=== PATIENT | female | born 1955 | race Caucasian/White ===

== ENCOUNTER → 2020-05-22 | Outpatient (CLI) | payer OTHER | LOC: HYPER 06:23 | PROVIDERS: ATTEND Emergency Medicine | DX: R21 Rash and other nonspecific skin eruption (principal); I25.709 Atherosclerosis of coronary artery bypass graft(s), unspecified, with unspecified angina pectoris; E78.5 Hyperlipidemia, unspecified; G47.00 Insomnia, unspecified; I10 Essential (primary) hypertension; K21.9 Gastro-esophageal reflux disease without esophagitis; F03.90 Unspecified dementia, unspecified severity, without behavioral disturbance, psychotic disturbance, mood disturbance, and anxiety; F32.9 Major depressive disorder, single episode, unspecified; F41.9 Anxiety disorder, unspecified; F43.23 Adjustment disorder with mixed anxiety and depressed mood; Z87.891 Personal history of nicotine dependence; Z95.1 Presence of aortocoronary bypass graft; Z79.01 Long term (current) use of anticoagulants; Z79.82 Long term (current) use of aspirin ==

== ENCOUNTER → 2020-05-24 | Outpatient (CLI) | payer OTHER | LOC: SJCVCIMAG 08:45 | PROVIDERS: ATTEND Emergency Medicine | DX: I70.202 Unspecified atherosclerosis of native arteries of extremities, left leg (principal); L97.818 Non-pressure chronic ulcer of other part of right lower leg with other specified severity ==

== ENCOUNTER → 2020-06-12 | Outpatient (CLI) | payer OTHER | LOC: HYPER 10:13 | PROVIDERS: ATTEND Emergency Medicine | DX: L40.3 Pustulosis palmaris et plantaris (principal); R21 Rash and other nonspecific skin eruption; I25.709 Atherosclerosis of coronary artery bypass graft(s), unspecified, with unspecified angina pectoris; K21.9 Gastro-esophageal reflux disease without esophagitis; G47.00 Insomnia, unspecified; I10 Essential (primary) hypertension; E78.5 Hyperlipidemia, unspecified; F03.90 Unspecified dementia, unspecified severity, without behavioral disturbance, psychotic disturbance, mood disturbance, and anxiety; F43.23 Adjustment disorder with mixed anxiety and depressed mood; F41.9 Anxiety disorder, unspecified; F32.9 Major depressive disorder, single episode, unspecified; Z87.891 Personal history of nicotine dependence; Z95.1 Presence of aortocoronary bypass graft; Z79.01 Long term (current) use of anticoagulants; Z79.82 Long term (current) use of aspirin ==

== ENCOUNTER → 2020-06-21 | Outpatient (CLI) | payer OTHER | LOC: HYPER 09:38 | PROVIDERS: ATTEND Emergency Medicine | DX: R21 Rash and other nonspecific skin eruption (principal); L40.3 Pustulosis palmaris et plantaris; I25.709 Atherosclerosis of coronary artery bypass graft(s), unspecified, with unspecified angina pectoris; I25.10 Atherosclerotic heart disease of native coronary artery without angina pectoris; I10 Essential (primary) hypertension; E78.5 Hyperlipidemia, unspecified; K21.9 Gastro-esophageal reflux disease without esophagitis; F32.9 Major depressive disorder, single episode, unspecified; F03.90 Unspecified dementia, unspecified severity, without behavioral disturbance, psychotic disturbance, mood disturbance, and anxiety; F41.9 Anxiety disorder, unspecified; F43.23 Adjustment disorder with mixed anxiety and depressed mood; Z79.01 Long term (current) use of anticoagulants; Z79.82 Long term (current) use of aspirin; Z87.891 Personal history of nicotine dependence; Z95.1 Presence of aortocoronary bypass graft ==

== ENCOUNTER → 2020-07-10 | Outpatient (CLI) | payer OTHER | LOC: HYPER 09:23 | PROVIDERS: ATTEND Emergency Medicine | DX: L40.3 Pustulosis palmaris et plantaris (principal); R21 Rash and other nonspecific skin eruption; I25.709 Atherosclerosis of coronary artery bypass graft(s), unspecified, with unspecified angina pectoris; K21.9 Gastro-esophageal reflux disease without esophagitis; E78.5 Hyperlipidemia, unspecified; I10 Essential (primary) hypertension; G47.00 Insomnia, unspecified; F43.23 Adjustment disorder with mixed anxiety and depressed mood; F03.90 Unspecified dementia, unspecified severity, without behavioral disturbance, psychotic disturbance, mood disturbance, and anxiety; Z87.891 Personal history of nicotine dependence; Z79.01 Long term (current) use of anticoagulants; Z79.82 Long term (current) use of aspirin; Z95.1 Presence of aortocoronary bypass graft ==

== ENCOUNTER → 2020-08-07 | Outpatient (CLI) | payer OTHER | LOC: HYPER 09:30 | PROVIDERS: ATTEND Specialist | DX: R21 Rash and other nonspecific skin eruption (principal); L40.3 Pustulosis palmaris et plantaris; E78.5 Hyperlipidemia, unspecified; I25.709 Atherosclerosis of coronary artery bypass graft(s), unspecified, with unspecified angina pectoris; I10 Essential (primary) hypertension; K21.9 Gastro-esophageal reflux disease without esophagitis; F03.90 Unspecified dementia, unspecified severity, without behavioral disturbance, psychotic disturbance, mood disturbance, and anxiety; F32.9 Major depressive disorder, single episode, unspecified; F43.23 Adjustment disorder with mixed anxiety and depressed mood; Z87.891 Personal history of nicotine dependence; Z95.1 Presence of aortocoronary bypass graft; Z79.01 Long term (current) use of anticoagulants; Z79.82 Long term (current) use of aspirin ==

== ENCOUNTER → 2020-08-17 | Outpatient (CLI) | payer OTHER | LOC: SJCVC 10:48 | PROVIDERS: ATTEND Internal Medicine | DX: R94.31 Abnormal electrocardiogram [ECG] [EKG] (principal); I45.10 Unspecified right bundle-branch block; I25.10 Atherosclerotic heart disease of native coronary artery without angina pectoris; I25.5 Ischemic cardiomyopathy; E78.00 Pure hypercholesterolemia, unspecified; I10 Essential (primary) hypertension; F17.201 Nicotine dependence, unspecified, in remission; Z95.1 Presence of aortocoronary bypass graft; Z79.899 Other long term (current) drug therapy ==

== ENCOUNTER → 2020-08-21 | Outpatient (CLI) | payer OTHER | LOC: HYPER 09:33 | PROVIDERS: ATTEND Specialist | DX: L40.3 Pustulosis palmaris et plantaris (principal); R21 Rash and other nonspecific skin eruption; I25.709 Atherosclerosis of coronary artery bypass graft(s), unspecified, with unspecified angina pectoris; K21.9 Gastro-esophageal reflux disease without esophagitis; G47.00 Insomnia, unspecified; I10 Essential (primary) hypertension; E78.5 Hyperlipidemia, unspecified; F43.23 Adjustment disorder with mixed anxiety and depressed mood; F03.90 Unspecified dementia, unspecified severity, without behavioral disturbance, psychotic disturbance, mood disturbance, and anxiety; Z79.01 Long term (current) use of anticoagulants; Z79.82 Long term (current) use of aspirin; Z95.1 Presence of aortocoronary bypass graft; Z87.891 Personal history of nicotine dependence ==

== ENCOUNTER → 2020-08-29 | Outpatient (CLI) | payer OTHER | LOC: CAT 10:41 | PROVIDERS: ATTEND Internal Medicine | DX: R91.8 Other nonspecific abnormal finding of lung field (principal); I25.10 Atherosclerotic heart disease of native coronary artery without angina pectoris; Z87.891 Personal history of nicotine dependence ==

== ENCOUNTER → 2020-09-07 | Outpatient (CLI) | payer OTHER ==
[~2020-09-07] MED LIST: IMDUR 30 MG TAB30 M1 PO
== END ==
LOC: SJCVCIMAG 07:51
PROVIDERS: ATTEND Internal Medicine
DX: I65.21 Occlusion and stenosis of right carotid artery (principal); I34.0 Nonrheumatic mitral (valve) insufficiency; I25.10 Atherosclerotic heart disease of native coronary artery without angina pectoris; I25.5 Ischemic cardiomyopathy; E78.5 Hyperlipidemia, unspecified; I70.0 Atherosclerosis of aorta; I70.8 Atherosclerosis of other arteries; Z95.1 Presence of aortocoronary bypass graft; Z79.899 Other long term (current) drug therapy; Z87.891 Personal history of nicotine dependence; Z82.49 Family history of ischemic heart disease and other diseases of the circulatory system

== ENCOUNTER 2020-09-14 15:05 | Emergency (ER) | payer OTHER ==
[~2020-09-14] VITALS: Ht 160 cm; Wt 79.4 kg
--- NOTE | ~2020-09-14 | EMS ---
[address] [address] EMS Patient Care Report Name: ERIKA SAHU Room #: DEP Haresh#: [id number] Admission: 09/14/20 Attend Phys: Discharge: 09/14/20 Date of : 55 Report #: [id number] THIS REPORT FOR: //name// Report Transmitted: 09/14/2020 17:53 EMS Care Summary [place], [place]/[facility] Incident [id number] @ 09/14/2020 14:35 Incident Location [address] [place] [address] BREAK Patient ERIKA SAHU Female, 64 Years 1955 Patient Address [address] [place] [address] Patient History Gastro-Esophageal Reflux Disease (GERD),Cardiac - Stent,Depression,Anxiety,Coronary Artery Disease (CAD), Patient Allergies No known allergies, Patient Medications Plavix, Metoprolol, Chief Complaint CP Disposition Transported No Lights/[place] Dispatch Reason Chest Pain (Non-Traumatic) Transported To [facility] Narrative RESPONDED TO CHEST PAIN AT [facility]. UPON ARRIVAL PT FOUND SITTING UPRIGHT IN CHAIR ALERT AND ORIENTED. PT REPORTS HAVING CHEST PAIN FOR 1 WEEK AND SAYS IN THE LAST HOUR IT HAS WORSENED. PT HAS HX OF CARDIAC STENT AND HEART [address] [address] EMS Patient Care Report Name: ERIKA SAHU [id number] Admission: 09/14/20 Attend Phys: Discharge: 09/14/20 Date of : 55 Report #: [id number] ATTACK. SHE STATES THE SYMPTOMS HAVE ALWAYS BEEN DIFFERENT SO SHE WORRIED SHE MAY HAVE ANOTHER. PT REPORTS TIGHTNESS IN CHEST SUBSTERNALLY. PT DENIES PAIN RADIATING ELSEWHERE. PT PIVOTS TO COT WHERE VITALS, 3 LEAD AND 12 LEAD OBTAINED. IV NOT ATTEMPTED DUE TO MINIMAL ACCESS. 12 LEAD REVEALED RBBB WITH ISCHEMIA NOTED IN LEADS V1-V3. PT TRANSPORTED TO [facility] WITH NO CHANGE IN CONDITION. PT SCOOTED TO BED AND HANDRAILS UP. REPORT GIVEN TO NURSE. Initial Vitals @14:49P: 80,CO: 2,SpO2: 99, @14:46P: 82,R: 16,BP: 146/88,CO: 2,SpO2: 97, @14:50P: 80,R: 18,BP: 146/86,Pain: 6/10,GCS: 15,CO: 1,SpO2: 98,Revised Trauma: 12, @14:55P: 80,BP: 142/84,CO: 1,SpO2: 98, @14:52P: 79,CO: 1,SpO2: 98,TN Suspected: false Assessments @14:43MENTAL:Time Oriented,Person Oriented,Place Oriented,Event Oriented,SKIN:HEENT:Head/Face: No Abnormalities,Eyes: No Abnormalities,Neck/Airway: No Abnormalities,LUNG SOUNDS:General: No Abnormalities,Left Upper: No Abnormalities,Right Upper: No Abnormalities,Left Lower: No Abnormalities,Right Lower: No Abnormalities,ABDOMEN:General: No Abnormalities,Left Upper: No Abnormalities,Right Upper: No Abnormalities,Left Lower: No Abnormalities,Right Lower: No Abnormalities,PELVIS//GI:No Abnormalities,EXTREMITIES:Left Arm: No Abnormalities,Right Arm: No Abnormalities,Left Leg: No Abnormalities,Right Leg: No Abnormalities,PULSE:NEURO:No Abnormalities,@14:53MENTAL:Place Oriented,Person Oriented,Event Oriented,Time Oriented,SKIN:No Abnormalities,HEENT:Head/Face: No Abnormalities,Eyes: No Abnormalities,Neck/Airway: No Abnormalities,LUNG SOUNDS:General: No Abnormalities,Left Upper: No Abnormalities,Right Upper: No Abnormalities,Left Lower: No Abnormalities,Right Lower: No Abnormalities,ABDOMEN:General: No Abnormalities,Left Upper: No Abnormalities,Right Upper: No Abnormalities,Left Lower: No Abnormalities,Right Lower: No Abnormalities,PELVIS//GI:No Abnormalities,EXTREMITIES:Left Arm: No Abnormalities,Right Arm: No Abnormalities,Left Leg: No Abnormalities,Right Leg: No Abnormalities,PULSE:NEURO:No Abnormalities, Impression Chest Pain / Discomfort Procedures @14:43ALS AssessmentResponse: UnchangedSucceeded@14:463-Lead ECGResponse: UnchangedSucceeded@14:4912-Lead ECGResponse: UnchangedFailed@14:5212-Lead ECGResponse: UnchangedSucceeded Timeline 14:34,Call Received [address] [address] EMS Patient Care Report Name: ERIKA SAHU Room #: [facility] RONAK Hutson#: [id number] Admission: 09/14/20 Attend Phys: Discharge: 09/14/20 Date of : 55 Report #: [id number] 14:34,Dispatch Notified 14:35,Dispatched 14:36,En Route 14:41,On Scene 14:43,At Patient 14:43,ALS Assessment,Response: UnchangedSucceeded, 14:46,BP: 146/88 M,PULSE: 82,RR: 16 R,SPO2: 97 Ox,ETCO2: ,BG: ,PAIN: ,GCS: , 14:46,3-Lead ECG,Response: UnchangedSucceeded, 14:49,12-Lead ECG,Response: UnchangedFailed, 14:49,BP: / M,PULSE: 80,RR: R,SPO2: 99 Ox,ETCO2: ,BG: ,PAIN: ,GCS: , 14:50,BP: 146/86 M,PULSE: 80,RR: 18 R,SPO2: 98 Ox,ETCO2: ,BG: ,PAIN: 6,GCS: 15, 14:52,12-Lead ECG,Response: UnchangedSucceeded, 14:52,BP: / M,PULSE: 79,RR: R,SPO2: 98 Ox,ETCO2: ,BG: ,PAIN: ,GCS: , 14:53,Depart Scene 14:55,BP: 142/84 M,PULSE: 80,RR: R,SPO2: 98 Ox,ETCO2: ,BG: ,PAIN: ,GCS: , 15:10,At Destination 15:16,Call Closed Disclaimer v1.1 Copyright 2020 [employer] This EMS Care Summary contains data elements from the applicable legal record (which may be displayed differently). It is designed to provide pertinent information for the following purposes: continuity of care, clinical quality, and state data reporting. The complete legal record is available to ED staff and administrators of the receiving hospital in [email or web address]'s Patient Tracker. All data is provided "as is."
--- NOTE | ~2020-09-14 | EKG ---
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: [facility] : 1955 Requested By: Emma Vee Order Number: [id number] MD: Measurements Intervals [place] Rate: 79 P: 48 WI: 198 QRS: 82 QRSD: 154 T: 52 QT: 455 QTc: 522 Interpretive Statements Sinus rhythm Right bundle branch block Probable lateral infarct, age indeterminate Compared to ECG 02/23/2004 20:21:23 Right bundle-branch block now present Myocardial infarct finding now present T-wave abnormality no longer present Possible ischemia no longer present [email or web address] By: 1507 1507 Epiphany Epiphany, /TAVO
[2020-09-14 15:44] LABS: ABSOLUTE NEUTROPHILS 7.4 thou/uL (1.4-8.2); BASOPHILS 0.9 % (0.0-2.0); HEMATOCRIT 38.8 % (37.0-47.0); HEMOGLOBIN 13.2 gm/dL (12.0-15.0); LYMPHOCYTES 18.8 % (24.0-44.0); MCH 33.4 pg (26.0-34.0); MCHC 34.1 g/dL (28.0-37.0); MONOCYTES 10.2 % (1.0-8.0); PLATELET COUNT 220 thou/uL (150-400); POLYS 69.1 % (36.0-66.0); RBC 3.96 mil/uL (4.20-5.00); RDW 14.2 % (10.5-14.5); WBC 10.7 thou/uL (4.0-11.0)
[2020-09-14 15:48] LABS: ANION GAP 11 mmol/L (7-16); BUN 10 mg/dL (7-18); CHLORIDE 100 mmol/L (98-107); CO2 25 mmol/L (21-32); CREATININE 1.4 mg/dL (0.6-1.0); GLUCOSE 114 mg/dL (74-106); SODIUM 136 mmol/L (136-145)
[2020-09-14 15:58] LABS: ALBUMIN 3.6 g/dL (3.4-5.0); DIRECT BILIRUBIN 0.1 mg/dL (<0.1-0.2); SGOT 13 U/L (15-37); SGPT 21 U/L (30-65); TOTAL BILIRUBIN 0.4 mg/dL (0.2-1.0); TOTAL PROTEIN 7.5 g/dL (6.4-8.2); TROPONIN-I <0.06 ng/mL (<0.06)
[2020-09-14] MEDS ORDERED: IMDUR 30 MG TAB30 M1 PO (17:49)
[2020-09-14 18:28] VITALS: BP 110/63
== END 2020-09-14 18:30 | disposition home or self-care (01) ==
LOC: ER 15:05
PROVIDERS: Emergency Medicine
DX: I20.8 Other forms of angina pectoris (principal); I25.2 Old myocardial infarction; Z95.5 Presence of coronary angioplasty implant and graft; Z90.49 Acquired absence of other specified parts of digestive tract; Z87.891 Personal history of nicotine dependence

== ENCOUNTER → 2020-09-20 | Outpatient (CLI) | payer OTHER | LOC: SJCVC 14:49 | PROVIDERS: ATTEND Internal Medicine | DX: R94.31 Abnormal electrocardiogram [ECG] [EKG] (principal); I45.4 Nonspecific intraventricular block; I11.9 Hypertensive heart disease without heart failure; I25.10 Atherosclerotic heart disease of native coronary artery without angina pectoris; I25.5 Ischemic cardiomyopathy; E78.5 Hyperlipidemia, unspecified; R91.8 Other nonspecific abnormal finding of lung field; I25.2 Old myocardial infarction; F17.201 Nicotine dependence, unspecified, in remission; Z95.1 Presence of aortocoronary bypass graft; Z79.899 Other long term (current) drug therapy ==

== ENCOUNTER → 2020-10-10 | Outpatient (CLI) | payer OTHER ==
[~2020-10-10] MED LIST changes: +ACETAMINOPHEN500 MG PO; +ARIPIPRAZOLE2 MG PO; +ASA81BEC PO; +ATORVASTATIN CA20 MG PO; +BUSPIRONE HCL5 MG PO; +CARAFATE 1 GM TA1 G1 PO; +CLARITIN10 M3 PO; +CLOBETASOL PROP15 G1 TOP; +CLOPIDOGREL75 MG PO; +GAVILAX17 GM PO; +ISOSORBIDE MONO60 M1 PO; +METOPROLOL SUCC25 M1 PO; +NITROSTAT0.4 MG SUBLING; +ONDANSETRON HCL4 M2 PO; +OTEZLA30 MG PO; +PROAIR HFA8.5 GM INH; +PROTONIX40 M2 PO; +RANOLAZINE ER500 MG PO; +SPIRONOLACTONE25 MG PO; +UREVAZ60 GM TOP; +VITAMIN B-12500 MC5 PO; +VITAMIN C500 M2 PO; +ZINC SULFATE220 MG PO
== END ==
LOC: LAB 14:40
PROVIDERS: ATTEND Surgery Vascular Surgery
DX: Z01.812 Encounter for preprocedural laboratory examination (principal); Z20.828 Contact with and (suspected) exposure to other viral communicable diseases

== ENCOUNTER 2020-10-16 06:06 | Inpatient (IN) | payer OTHER ==
[2020-10-10 11:34] LABS: ABSOLUTE NEUTROPHILS 6.7 thou/uL (1.4-8.2); BASOPHILS 0.5 % (0.0-2.0); EOSINOPHILS 0.6 % (0.0-3.0); HEMATOCRIT 39.3 % (37.0-47.0); HEMOGLOBIN 13.4 gm/dL (12.0-15.0); LYMPHOCYTES 18.8 % (24.0-44.0); MCH 33.2 pg (26.0-34.0); MCHC 34.2 g/dL (28.0-37.0); MCV 97.1 fL (80.0-100.0); MONOCYTES 8.9 % (1.0-8.0); PLATELET COUNT 222 thou/uL (150-400); POLYS 71.2 % (36.0-66.0); RBC 4.05 mil/uL (4.20-5.00); RDW 14.2 % (10.5-14.5); URINE BILIRUBIN NEGATIVE (Negative); URINE BLOOD NEGATIVE (Negative); URINE CLARITY SL CLOUDY; URINE COLOR YELLOW; URINE GLUCOSE-RANDOM* NEGATIVE (Negative); URINE KETONES NEGATIVE (Negative); URINE NITRITE-REFLEX NEGATIVE (Negative); URINE PROTEIN (DIPSTICK) NEGATIVE (Negative); URINE SPECIFIC GRAVITY 1.025 (1.005-1.035); URINE UROBILINOGEN 0.2 E.U./dl (0.2-1.0); WBC 9.4 thou/uL (4.0-11.0)
[2020-10-10 11:35] LABS: URINE LEUKOCYTES-REFLEX 2+ (Negative)
[2020-10-10 11:51] LABS: APTT 28.7 Seconds (24.5-32.8); PROTIME 10.7 Seconds (9.3-11.4)
[2020-10-10 11:57] LABS: SQUAMOUS 0-3 Few /LPF (0-3)
[2020-10-10 11:58] LABS: ALBUMIN 3.8 g/dL (3.4-5.0); CALCIUM 9.2 mg/dL (8.5-10.1); CASTS None Seen /LPF (None Seen); CREATININE 1.3 mg/dL (0.6-1.0); CRYSTALS None Seen /LPF (None Seen); POTASSIUM 4.2 mmol/L (3.5-5.1); TOTAL BILIRUBIN 0.6 mg/dL (0.2-1.0); TOTAL PROTEIN 7.4 g/dL (6.4-8.2)
[2020-10-10 12:00] LABS: URINE RBC None Seen /HPF (0-2); URINE WBC-REFLEX 0-5 Rare /HPF (0-5)
[2020-10-16] VITALS (9 sets, daily range): BP systolic 81–109; BP diastolic 47–69
[~2020-10-16] VITALS: Ht 160 cm; Wt 85.0 kg
[2020-10-17] VITALS (8 sets, daily range): BP systolic 82–114; BP diastolic 47–62
[2020-10-17 05:39] LABS: HEMATOCRIT 31.4 % (37.0-47.0); HEMOGLOBIN 10.4 gm/dL (12.0-15.0); MCH 32.6 pg (26.0-34.0); MCHC 33.2 g/dL (28.0-37.0); MCV 98.1 fL (80.0-100.0); RBC 3.2 mil/uL (4.20-5.00); RDW 14.5 % (10.5-14.5); WBC 16.5 thou/uL (4.0-11.0)
[2020-10-17 06:01] LABS: CALCIUM 7.9 mg/dL (8.5-10.1); CREATININE 1.1 mg/dL (0.6-1.0); POTASSIUM 4.5 mmol/L (3.5-5.1)
[2020-10-18] VITALS (17 sets, daily range): BP systolic 86–120; BP diastolic 48–69
[2020-10-19] VITALS (19 sets, daily range): BP systolic 95–113; BP diastolic 52–77
--- NOTE | 2020-10-19 11:05 | O ---
[facility] [place] [address] OPERATIVE REPORT Name: ERIKA SAHU Room #: 249-P ADM IN M.R.#: [id number] Admission: 10/16/20 Attend Phys: Fercho Gutierres MD Discharge: Date of : 55 Report #: [id number] THIS REPORT FOR: cc: Adi Laazr MD, Mark A. MD Forman, John M. MD ~ CC: Fercho Lazar DATE OF SERVICE: 10/16/2020 PREOPERATIVE DIAGNOSIS: Left lower lobe pulmonary nodule. POSTOPERATIVE DIAGNOSES: Left lower lobe pulmonary nodule. Frozen section revealed squamous cell carcinoma. OPERATIONS: Bronchoscopy, left thoracotomy with lower pulmonary lobectomy. SURGEON: Fercho Gutierres MD LODE MINER: TOSHA Cooper. ANESTHESIA: General. INDICATIONS: The patient is a 65-year-old who had a CT scan that showed a solitary pulmonary nodule. This led up on PET scan, but no other areas were positive. The patient had reasonable pulmonary function for resection as well as a reasonable performance status. FINDINGS AND TECHNIQUE: After general anesthesia was established, flexible diagnostic bronchoscopy was performed. No endobronchial lesions were noted. A double lumen endotracheal tube was placed and its position was checked under bronchoscopic guidance. The patient was placed with left side up. Exposure was obtained through a posterolateral thoracotomy. Chest was entered using a rib sparing, nerve sparing approach through the fifth interspace. The nodule in the lower lobe was identified. A wedge resection was done and this was submitted for frozen section. Frozen section was suspicious for squamous cell carcinoma. The lobectomy was performed. A well-established fissure was exploited to expose the interlobar pulmonary artery. Pulmonary arterial branches to the lower lobe were ligated and divided. The inferior pulmonary vein was circumdissected and [facility] [address] [place] [address] OPERATIVE REPORT Name: ERIKA SAHU Room #: 249-P ADM IN M.R.#: [id number] Admission: 10/16/20 Attend Phys: Fercho Gutierres MD Discharge: Date of : 55 Report #: [id number] stapled and divided. The bronchus was circumdissected tested and then stapled and divided. The lobe was submitted for permanent pathology. Node dissection was done and nodes from the pulmonary ligament, hilum, and subcarinal areas were submitted. Hemostasis was ascertained in all areas. Bronchial stump was tested and found to be secured. A chest tube was brought through separate stab wound and then chest was closed to continue the nerve sparing, rib sparing approach. The patient tolerated the procedure well and was taken to the recovery area in good condition. All counts reported as correct. <ELECTRONICALLY SIGNED> By: Fercho Gutierres MD 10/19/20 1105 1019 1028 Fercho Gutierres MD /nt
[2020-10-20] VITALS (9 sets, daily range): BP systolic 93–111; BP diastolic 43–70
[2020-10-21] VITALS (8 sets, daily range): BP systolic 92–99; BP diastolic 51–63
[2020-10-22 05:46] VITALS: BP 95/56
[2020-10-22 08:15] VITALS: BP 99/64
--- NOTE | 2020-10-22 09:06 | PATH ---
[facility] [place] [address] PATHOLOGY RPT PROCEDURE Name: ERIKA TEJADA Room #: 207-P ADM IN M.R.#: [id number] Admission: 10/16/20 Date of : 55 Discharge: Report #: [id number] Path Case #: [id number] [facility] Accession Number: [id number] . 01 Material submitted: . PART A: lung - LEFT LOWER LOBE WEDGE BIOPSY FS. Modifiers: left, lower PART B: lymph node - PULMONARY LIGAMENT LYMPH NODE LEVEL 9 PART C: lymph node - LEVEL 10 LYMPH NODE HILAR PART D: lymph node - SECOND HILAR NODE LEVEL 10 PART E: lymph node - THIRD HILAR NODE LEVEL 10 PART F: lung - LEFT LOWER LOBE LUNG. Modifiers: left, lower PART G: lymph node - FOURTH HILAR NODE LEVEL 10 PART H: lymph node - SUBCARINAL LYMPH NODE LEVEL 7 . 01 Clinical history: . THORACTOMY FLEXIBLE BRONCHOSCOPY LOBECTOMY, LUNG WEDGE RESECTION LYMPH NODE DISSECTION . 02 Frozen section diagnosis: . FROZEN SECTION DIAGNOSIS: (Maribell Sarmiento M.D.): . FSA: Lung "left lower lobe", wedge biopsy: - NON-SMALL CELL CARCINOMA. . The findings are conveyed to Dr. Gutierres intraoperatively and a progress note is placed in the patient's chart. . Frozen section performed at [facility], [address] [place] [address] , [place] [address]. . . FROZEN SECTION GROSS DESCRIPTION: Received fresh from the operating room labeled "left lower lobe" wedge biopsy is a pyramidal piece of soft pinkish-nunn lung tissue measuring 3.5 x 2.0 x 1.5 cm. The pleural surface is inked. Serial sectioning reveals a 1.5 x 1.0 cm hassan lesion which is fairly well circumscribed. Black discoloration is present in the center of the mass. The mass closely abuts the pleural surface. A section of the lesion is frozen and submitted as cassette A1. The remainder of the mass is submitted in cassettes A2-A4 and the adjacent unremarkable parenchyma is submitted in cassette A5. (MLK/db; 10/16/2020) ANNIE/LBQ . [address] [address] PATHOLOGY RPT PROCEDURE Name: ERIKA TEJADA Room #: 207-P ADM IN .R.#: [id number] Admission: 10/16/20 Date of : 55 Discharge: Report #: [id number] Path Case #: [id number] Diagnosis: A. Lung, left lower lobe, wedge resection: - INVASIVE MODERATELY DIFFERENTIATED SQUAMOUS CELL CARCINOMA, MEASURING 1.5 CM IN GREATEST DIMENSION. - FOCAL VISCERAL PLEURAL INVASION PRESENT. . B. Lymph node (1), pulmonary ligament lymph node level 9, biopsy: - Reactive lymph node with pigmented histiocytes; negative for malignancy (0/1). . C. Lymph node (1), level 10 hilar lymph node, biopsy: - Reactive lymph node with pigmented histiocytes; negative for malignancy (0/1). . D. Lymph node (1), second hilar node level 10, biopsy: - Reactive lymph node with pigmented histiocytes; negative for malignancy (0/1). . E. Lymph node (1), third hilar node level 10, biopsy: - Reactive lymph node with pigmented histiocytes; negative for malignancy (0/1). . F. Lung, left lower lobe lung, lobectomy: - Bronchial and vascular margins of resection widely free of malignancy. - Background non-neoplastic lung parenchyma showing emphysematous changes along with congestion. - Reactive lymph node with pigmented histiocytes; negative for malignancy (0/1). . G. Lymph node (1), fourth hilar node level 10, biopsy: - Reactive lymph node with pigmented histiocytes; negative for malignancy (0/1). . H. Lymph node (1), subcarinal lymph node level 7, biopsy: - Reactive lymph node with pigmented histiocytes; negative for malignancy (0/1). (IUV/db; 10/19/2020) . . Surgical Pathology Cancer Case Summary . Protocol Posting Date: December 2019 . LUNG: Procedure- Wedge resection followed by Lobectomy Specimen Laterality- Left Tumor Site- Lower lobe of lung Tumor Size- 1.5 cm in greatest dimensions [address] [address] PATHOLOGY RPT PROCEDURE Name: SHYAMTopherBROOKLYNNERIKA Topher Room #: 207-P ADM IN M.R.#: [id number] Admission: 10/16/20 Date of : 55 Discharge: Report #: [id number] Path Case #: [id number] Tumor Focality- Single tumor Histologic Type- Squamous cell carcinoma Histologic Grade- G2: Moderately differentiated Spread Through Air Spaces- Not identified Visceral Pleura Invasion- Present Lymphovascular Invasion- Not identified Direct Invasion of Adjacent Structures- No adjacent structures present Margins- All margins are uninvolved by tumor Margins examined: Bronchial, Vascular and Visceral Pleura Distance of invasive carcinoma from closest margin (centimeters): less than 0.1 cm Specify closest margin: Pleural Treatment Effect- No known presurgical therapy Regional Lymph Nodes- Number of Lymph Nodes Examined: 7 Specify maria luz station(s) examined: Level 10 Hilar nodes, Pulmonary ligament Level 9 node, Sub carinal lymph node level 7 . . Pathologic Stage Classification (pTNM, AJCC 8th Edition) . TNM Descriptors- None . Primary Tumor (pT)- pT2: Tumor invades visceral pleural surface Regional Lymph Nodes (pN) pN0: No regional lymph node metastasis Distant Metastasis (pM): pMx (unknown) [facility] 10/19/2020 1352 Local . 02 Comment: Examination shows a moderately differentiated epithelioid non-small cell carcinoma. Keratinization or gland formation is not identified. Multiple properly controlled immunohistochemical stains are performed on block A2. The tumor shows strong nuclear reactivity with p63 as well as p40. The tumor is non-reactive to TTF-1, Napsin A, synaptophysin, as well as chromogranin. AE1/AE3 shows intact membranous reactivity. Ki-67 is performed and it shows a markedly proliferative tumor. Findings support a moderately differentiated squamous cell carcinoma. The non-reactive immunohistochemical stains argue against a carcinoid tumor, as well as adenocarcinoma. . A VVG (elastic) special stain is performed on block A4 and it shows disruption of the visceral pleural surface due to the neoplastic cells. Focally, tumor cells show cautery as well. . Assembler Type Bar And Segment slide (slide A1) was co-reviewed by Dr. Leora Sarmiento who concurs with my diagnosis. (IUV/db; 10/19/2020) [address] [address] PATHOLOGY RPT PROCEDURE Name: SHYAMERIKA CARPENTER Topher Room #: 207-P ADM IN M.R.#: [id number] Admission: 10/16/20 Date of : 55 Discharge: Report #: [id number] Path Case #: [id number] . 02 Electronically signed: . Tori Rabago MD, Pathologist NPI- [id number] . 01 Gross description: . A. SEE FROZEN SECTION GROSS DESCRIPTION. . B. The specimen is received in formalin, labeled "Erika Tejada, pulmonary ligament lymph node level 9". Received is a segment of yellow-nunn lobulated tissue measuring 1.6 x 1.0 x 0.4 cm in greatest dimensions. Dissection and palpation of the specimen reveals a single possible lymph node measuring 0.5 cm in maximum dimensions displaying hemorrhagic cut surfaces. The specimen is bisected and entirely submitted in cassette B1. . C. The specimen is received in formalin, labeled "Erika Tejada level 10 hilar lymph node". Received is a segment of shaggy brown-black tissue measuring 0.6 cm in maximum dimensions. The specimen is submitted entirely in cassette C1. . D. The specimen is received in formalin, labeled "Erika Wiskur, second hilar node level 10". Received is a segment of yellow-brown lobulated tissue measuring 0.8 x 0.5 x 0.3 cm in greatest dimensions. Sectioning reveals a single lymph node measuring 0.6 cm displaying anthracotic cut surfaces. The specimen is bisected and entirely submitted in cassette D1. . E. The specimen is received in formalin, labeled "Erika Tejada, third hilar node level 10". Received is a segment of dark brown lobulated tissue measuring 1.0 x 0.7 x 0.3 cm in greatest dimensions. Sectioning reveals dark brown cut surfaces. The specimen is bisected and entirely submitted in cassette E1. . F. The specimen is received in formalin, labeled "Erika Tejada, left lower lobe lung". Received is a 121 g lobectomy specimen measuring 12.8 x 7.9 x 4.2 cm in greatest dimensions. The pleural surface is smooth and pink-hassan in appearance. There is a scattered white-nunn discoloration on the pleural surface measuring 9.8 x 4.3 cm, which opposes the bronchial margin. Within this area, there is a suture identified, suggestive of previous wedge resection. This area is inked blue. Sectioning reveals light nunn to red-brown and surfaces with no grossly distinct nodules or lesions. Along the hilar aspect, a single possible lymph node is identified measuring 0.6 cm in maximum dimensions. The specimen is submitted representatively as follows: . 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 . G. The specimen is received in formalin, labeled "Erika Wiskur, fourth hilar node level 10". Received is a segment of dark brown soft tissue measuring 0.6 cm in maximum dimensions. The specimen is submitted intact in cassette G1. . H. The specimen is received in formalin, labeled "Erika Wiskur, subcarinal lymph node level 7". Received is a segment of yellow-nunn lobulated tissue measuring 1.5 cm in maximum dimensions. Dissection and palpation of the specimen reveals no grossly distinct lymph node. The specimen is submitted entirely in cassette H1. (CAA; 10/17/2020) QAC/LBQ 10/17/2020 1602 Local . 02 Pathologist provided ICD-10: C34.32 . 02 CPT . 917929, 896793, 437856, 655642, 411105, 625147, D08888, L04183 Specimen Comment: A courtesy copy of this report has been sent to [phone], [phone] Specimen Comment: [id number] Specimen Comment: Report sent to / DR GUZMAN Performed at: [address], [place] [id number] MD Khai Hinson MD Phone: [phone] Performed at: [address] [facility] [id number] MD Tori Rabago MD Phone: [phone]
[2020-10-22 12:17] VITALS: BP 133/78
[2020-10-22 13:09] VITALS: BP 133/78
[2020-10-22 14:28] VITALS: BP 133/78
== END 2020-10-22 15:25 | disposition home health service (06) | DRG 164 ==
LOC: TBA 06:06 → ICU 06:06 → PRE 10:30 → ICU 11:35 → PRE 12:40 → 2N 10-20 06:30
PROVIDERS: Physician Assistant; ADMIT Surgery Vascular Surgery; ATTEND Surgery Vascular Surgery
DX: C34.32 Malignant neoplasm of lower lobe, left bronchus or lung (principal); D62 Acute posthemorrhagic anemia; R91.1 Solitary pulmonary nodule; D72.829 Elevated white blood cell count, unspecified; K59.00 Constipation, unspecified; F41.9 Anxiety disorder, unspecified; I25.2 Old myocardial infarction; Z95.5 Presence of coronary angioplasty implant and graft
CPT/HCPCS: 10078; 10081; 47405; 50010; 50101; 50386; 50417; 50455; 50497; 51301; 52191; 52301; 52303; 54118; 56455; 56524; 56525; 56526; 56527; 56528; 62110; 62900; 65020; 65040; 65105; 70005

== ENCOUNTER 2020-11-06 09:12 | Inpatient (IN) | payer OTHER ==
[~2020-11-06] VITALS: Ht 160 cm; Wt 75.9 kg
[2020-11-06 09:13] VITALS: BP 105/68
[2020-11-06 10:12] LABS: BE(vivo) -2.5 mmol/L (-2 to +3); HCO3 21.6 mmol/L (22.0-26.0); PCO2 35.4 mmHg (35.0-45.0); PO2 65.8 mmHg (80.0-100.0); pH 7.404 (7.360-7.450); sO2 93.2 % (92.0-98.0)
[2020-11-06 10:26] LABS: ABSOLUTE NEUTROPHILS 3.5 thou/uL (1.4-8.2); BASOPHILS 0.3 % (0.0-2.0); EOSINOPHILS 0.1 % (0.0-3.0); HEMATOCRIT 39.2 % (37.0-47.0); HEMOGLOBIN 13.1 gm/dL (12.0-15.0); LYMPHOCYTES 27.8 % (24.0-44.0); MCH 31.5 pg (26.0-34.0); MCHC 33.5 g/dL (28.0-37.0); MONOCYTES 13.4 % (1.0-8.0); PLATELET COUNT 201 thou/uL (150-400); POLYS 58.4 % (36.0-66.0); RBC 4.17 mil/uL (4.20-5.00); RDW 15.7 % (10.5-14.5)
[2020-11-06 10:35] LABS: ANION GAP 10 mmol/L (7-16); BUN 9 mg/dL (7-18); CALCIUM 9.3 mg/dL (8.5-10.1); CHLORIDE 101 mmol/L (98-107); CO2 25 mmol/L (21-32); CREATININE 1.1 mg/dL (0.6-1.0); GLUCOSE 121 mg/dL (74-106); POTASSIUM 3.7 mmol/L (3.5-5.1); SODIUM 136 mmol/L (136-145)
[2020-11-06 10:46] LABS: ALBUMIN 3.3 g/dL (3.4-5.0); DIRECT BILIRUBIN 0.1 mg/dL (<0.1-0.2); LIPASE 167 U/L (73-393); SGOT 27 U/L (15-37); SGPT 34 U/L (14-59); TOTAL BILIRUBIN 0.4 mg/dL (0.2-1.0); TOTAL PROTEIN 7.5 g/dL (6.4-8.2); TROPONIN-I <0.06 ng/mL (<0.06)
[2020-11-06 10:49] LABS: URINE BILIRUBIN NEGATIVE (Negative); URINE BLOOD NEGATIVE (Negative); URINE CLARITY CLEAR; URINE COLOR YELLOW; URINE GLUCOSE-RANDOM* NEGATIVE (Negative); URINE KETONES 1+ (Negative); URINE NITRITE-REFLEX NEGATIVE (Negative); URINE PROTEIN (DIPSTICK) TRACE (Negative); URINE SPECIFIC GRAVITY 1.025 (1.005-1.035); URINE UROBILINOGEN 0.2 E.U./dl (0.2-1.0)
[2020-11-06 10:50] LABS: URINE LEUKOCYTES-REFLEX 1+ (Negative)
[2020-11-06 11:04] LABS: CASTS None Seen /LPF (None Seen); CRYSTALS None Seen /LPF (None Seen); MUCUS 0-3 Light strn/LPF (None Seen); SQUAMOUS 4-10 Moderate /LPF (0-3)
[2020-11-06 11:06] LABS: BACTERIA-REFLEX 1-9 Few /HPF (None Seen); URINE RBC None Seen /HPF (0-2); URINE WBC-REFLEX 6-15 Few /HPF (0-5)
[2020-11-06] MEDS ORDERED: GAVILAX17 GM PO (11:21)
[2020-11-06] MEDS ORDERED: [UNRECOGNIZED DRUG - OTHER] PO (11:22)
[2020-11-06] MEDS ORDERED: NYSTATIN1000000 UN TOP (11:22)
--- NOTE | 2020-11-06 11:57 | EKG ---
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 : 1955 Requested By: Angelito Arreola Order Number: [id number] MD: Valente Rolon Measurements Intervals [place] Rate: 68 P: 40 WI: 193 QRS: 140 QRSD: 158 T: 28 QT: 507 QTc: 540 Interpretive Statements Sinus rhythm Right bundle branch block Baseline wander in lead(s) V2,V3,V5,V6 Compared to ECG 09/14/2020 15:07:31 No significant changes Electronically Signed On 11-06-2020 11:56:54 [employer] by Valente Rolon [email or web address] <ELECTRONICALLY SIGNED> By: Valente Rolon MD, [facility] 11/06/20 1156 9 9 Valente Rolon MD, [facility] /EPI
[2020-11-06 20:19] VITALS: BP 125/69
[2020-11-06 21:05] VITALS: BP 124/72
[2020-11-06 22:10] VITALS: BP 129/69
[2020-11-07 00:25] VITALS: BP 129/69
[2020-11-07 03:43] VITALS: BP 112/67
--- NOTE | 2020-11-07 04:50 | NUR ---
PATIENT ARRIVED TO THE FLOOR AT 2100 PER CART FROM ER. TRANSFERRED BEDS WITH STEADY GAIT. A&OX4. ASSESSMENTS CHARTED. MEDS GIVEN PER EMAR. PATIENT ON 2L. PATIENT HAS BEEN RESTING AND SLEEPING IN BED WITH NO COMPLAINTS OF SOA OR PAIN. ADMISSION PROCESS COMPLETE. CONTINUING TO ASSESS CLOSESLY ACCORDING TO POC.
[2020-11-07 06:00] LABS: HEMATOCRIT 34.9 % (37.0-47.0); HEMOGLOBIN 11.7 gm/dL (12.0-15.0); MCH 31.5 pg (26.0-34.0); MCHC 33.6 g/dL (28.0-37.0); MCV 93.6 fL (80.0-100.0); RBC 3.73 mil/uL (4.20-5.00); RDW 15.1 % (10.5-14.5); WBC 2.8 thou/uL (4.0-11.0)
[2020-11-07 06:15] LABS: CALCIUM 8.6 mg/dL (8.5-10.1); CREATININE 0.8 mg/dL (0.6-1.0); POTASSIUM 4.2 mmol/L (3.5-5.1)
[2020-11-07 07:55] VITALS: BP 113/64
[2020-11-07 11:19] VITALS: BP 107/66
--- NOTE | 2020-11-07 13:55 | NUR ---
INITIAL ASSESSMENT: LOUIS reviewed chart and spoke with nursing and attending physician. Pt was admitted from [facility] due to weakness and nausea/vomiting. Pt placed in Enhanced Isolation due to COVID-19. Pt is afebrile and not requiring O2. Pt is on IV abx and IV steroids. Pt is completing courses of Remdesivir and Ivermectin. Pt was recently discharged from [facility] with [place] [facility]. LOUIS placed call to pt's room. No answer. LOUIS spoke with pt's dtr, Luz, via phone. Introduced role of SW. Pt is normally alert/orientated x 4. Pt's PCP is Dr. Adi Lazar. Pt's dtr states she wanted pt to stay with her when disharged earlier this month, but pt insisted on returning to [facility] with . Pt's dtr states that pt had tested negative at the facility. Plan is for pt to return to [facility] when medically stable. PT/OT to be ordered to evaluate pt for discharge needs. LOUIS spoke with intake at [facility] and notified [facility] liaison of pt being COVID positive. LOUIS is following to assist as needed with discharge planning.
[2020-11-07 15:38] VITALS: BP 96/60
--- NOTE | 2020-11-07 18:12 | NUR ---
A/O *4, calm and pleasant. vss, afebrile. no complaint.
[2020-11-07 19:50] VITALS: BP 119/70
[2020-11-08 04:20] VITALS: BP 112/78
--- NOTE | 2020-11-08 05:58 | NUR ---
PT MAKING PROGRESS TOWARDS GOALS. PT UP TO BSC THEN BACK TO BED WITHOUT ANY OBSERVABLE INCREASED WOB. DENIES ANY SOA. REMAINS ON O2 AT 2L PER NC.
[2020-11-08 06:12] LABS: ABSOLUTE NEUTROPHILS 5.6 thou/uL (1.4-8.2); BASOPHILS 0.1 % (0.0-2.0); EOSINOPHILS 0.1 % (0.0-3.0); HEMATOCRIT 34.3 % (37.0-47.0); HEMOGLOBIN 11.4 gm/dL (12.0-15.0); LYMPHOCYTES 16.3 % (24.0-44.0); MCH 31.4 pg (26.0-34.0); MCHC 33.3 g/dL (28.0-37.0); MCV 94.4 fL (80.0-100.0); MONOCYTES 11.6 % (1.0-8.0); PLATELET COUNT 204 thou/uL (150-400); POLYS 71.9 % (36.0-66.0); RBC 3.64 mil/uL (4.20-5.00); RDW 15.2 % (10.5-14.5); WBC 7.8 thou/uL (4.0-11.0)
[2020-11-08 06:33] LABS: FIBRINOGEN 290.9 mg/dL (210-360); INR 1.1; PROTIME 11.3 Seconds (9.3-11.4)
[2020-11-08 06:39] LABS: ALBUMIN 2.8 g/dL (3.4-5.0); CALCIUM 8.4 mg/dL (8.5-10.1); CREATININE 0.9 mg/dL (0.6-1.0); DIRECT BILIRUBIN 0.1 mg/dL (<0.1-0.2); POTASSIUM 3.8 mmol/L (3.5-5.1); TOTAL BILIRUBIN 0.3 mg/dL (0.2-1.0); TOTAL PROTEIN 6.4 g/dL (6.4-8.2)
[2020-11-08 08:00] VITALS: BP 106/66
[2020-11-08 11:39] VITALS: BP 109/65
--- NOTE | 2020-11-08 13:02 | NUR ---
LOUIS reviewed chart and spoke with nursing and attending physician. Pt remains in Enhanced Isolation due to COVID-19. Pt is afebrile and on 2L of O2. Pt is on IV abx and IV steroids. Pt is completing course of Remdesivir. PT/OT ordered today to evaluate pt for discharge needs. No weekend discharge planned. LOUIS left voice message for Jemal, Director at [facility]. LOUIS is following to assist as needed with discharge planning.
[2020-11-08 15:22] VITALS: BP 91/54
[2020-11-08 19:59] VITALS: BP 109/70
--- NOTE | 2020-11-08 22:20 | NUR ---
PT ALERT AND ORIENTED X4. VSS PRESENTLY AND UNLABORED SATTING 99%. ON 2LNC. NO C/O PAIN. VOIDS PER BSC WITHOUT DIFFICULTY. IVF'S INFUSING RFA. NO S/S DISTRESS.SR 1'AVB ON MONITOR. WILL CONTINUE TO MONITOR PT FOR CHANGES.
[2020-11-09 00:10] VITALS: BP 106/70
[2020-11-09 03:00] VITALS: BP 106/66
--- NOTE | 2020-11-09 04:42 | NUR ---
VSS AFEBRILE. NO C/O PAIN. NO SOA. NO S/S DISTRESS.
[2020-11-09 06:58] LABS: ALBUMIN 2.7 g/dL (3.4-5.0); CREATININE 0.9 mg/dL (0.6-1.0); DIRECT BILIRUBIN 0.1 mg/dL (<0.1-0.2); TOTAL BILIRUBIN 0.3 mg/dL (0.2-1.0)
[2020-11-09 08:17] VITALS: BP 106/67
[2020-11-09 13:08] VITALS: BP 112/72
--- NOTE | 2020-11-09 16:07 | NUR ---
PATIENT UP TO BEDSIDE COMMODE WITH ONE ASSIST. DOES NOT SEEM TO BE IN PAIN AT THIS TIME.
[2020-11-09 16:30] VITALS: BP 107/74
[2020-11-09 21:00] VITALS: BP 126/82
[2020-11-10 03:31] VITALS: BP 122/71
[2020-11-10 04:52] LABS: ALBUMIN 2.9 g/dL (3.4-5.0); CREATININE 0.8 mg/dL (0.6-1.0); DIRECT BILIRUBIN 0.1 mg/dL (<0.1-0.2); TOTAL BILIRUBIN 0.5 mg/dL (0.2-1.0); TOTAL PROTEIN 6.6 g/dL (6.4-8.2)
--- NOTE | 2020-11-10 05:26 | NUR ---
continues on 0.5 liters of o2, whiles resting at night keeping sats mid 90's. she has had one episode of nausea tonight. the zofran was effective to control the discomfort.
[2020-11-10 08:38] VITALS: BP 104/73
[2020-11-10 11:54] VITALS: BP 93/59
[2020-11-10 15:38] VITALS: BP 105/71
[2020-11-10 20:07] VITALS: BP 114/67
--- NOTE | 2020-11-11 03:55 | NUR ---
PT TRANSFERRING TO BEDSIDE COMMODE WITH ASSIST AND IS TOLERATING FAIR. DENIES PAIN. RESTING COMFORTABLY. NO NEEDS VOICED. CALL LIGHT WITHIN REACH. FREQUENT OBSERVATION.
[2020-11-11 04:43] VITALS: BP 129/74
[2020-11-11 07:52] VITALS: BP 119/72
[2020-11-11 08:14] LABS: ALBUMIN 3.1 g/dL (3.4-5.0); CREATININE 0.9 mg/dL (0.6-1.0); DIRECT BILIRUBIN 0.2 mg/dL (<0.1-0.2); TOTAL BILIRUBIN 0.5 mg/dL (0.2-1.0); TOTAL PROTEIN 6.7 g/dL (6.4-8.2)
[2020-11-11 11:11] VITALS: BP 106/62
[2020-11-11 15:39] VITALS: BP 102/64
--- NOTE | 2020-11-11 18:14 | NUR ---
SHE SLEPT PART OF THE DAY. REFUSED TO GET UP FROM TO W/C. SHE IS ALERT ORIENTED X4. IV DRESSING CHANGED.
[2020-11-11 20:59] VITALS: BP 123/75
--- NOTE | 2020-11-12 04:36 | NUR ---
PT TRANSFERRING TO BEDSIDE COMMODE WITH STANDBY ASSIST AND IS TOLERATING FAIR. DENIES PAIN. RESTING COMFORTABLY. NO NEEDS VOICED. CALL LIGHT WITHIN REACH. FREQUENT OBSERVATION.
[2020-11-12 06:18] VITALS: BP 117/74
[2020-11-12 08:38] VITALS: BP 103/72
[2020-11-12 11:34] VITALS: BP 101/66
--- NOTE | 2020-11-12 14:23 | NUR ---
LOUIS reviewed chart and spoke with nursing and attending physician. Pt remains in Enhanced Isolation due to COVID-19. Pt is afebrile and not requiring O2. Pt is on IV abx and progressing towards goals for discharge. SW receievd call from pt's dtr, Luz, stating that she does not want pt to return to [facility] upon admission and would want pt to go to a SNF for rehab and more medical supervision. [facility] is not allowing HH into the facility at this time. SW provided options for SNFs who are accepting COVID positive pts. Pt's dtr is agreeable with referrals to [facility], [facility], [facility] and [facility]. SW placed call to pt's room. No answer. Pt's dtr states that pt would be agreeable with short-term SNF placement. LOUIS faxed referrals to facilities. [facility] does not have any beds available and will likely not have any openings this week. [facility] is not able to bill pt's [place] if she would need more than [address] [facility] is able to accept pt. LOUIS spoke with La Nena at [facility] who will review info and notify LOUIS of decision. LOUIS is following to assist as needed with discharge planning.
[2020-11-12 15:56] VITALS: BP 104/75
[2020-11-12] MEDS ORDERED: CEFPODOXIME PR200 M1 PO (16:00)
[2020-11-12] MEDS ORDERED: PREDNISONE 10 M10 MG PO (16:02)
--- NOTE | 2020-11-12 19:44 | NUR ---
PATIENT DISCHARGED THIS PM TO [facility]. SHE WAS ALERT ORIENTED X4. DOES NOT SEEM TO BE IN PAIN OR DISTRESS. ATTEPTED TO CALL REPORT BUT NO ONE ANSWERED THE PHONE ON THE NURSING UNIT.
== END 2020-11-12 17:33 | DRG 871 ==
LOC: ER 09:12 → EROBS 11:21 → 3W 11:21
PROVIDERS: Emergency Medicine; Specialist; ADMIT Hospitalist; ATTEND Hospitalist
PROC: XW033E5 Introduction of Remdesivir Anti-infective into Peripheral Vein, Percutaneous Approach, New Technology Group 5 (ICD-10-PCS; principal; 2020-11-07)
DX: A41.89 Other specified sepsis (principal); U07.1 COVID-19; J96.01 Acute respiratory failure with hypoxia; J12.89 Other viral pneumonia; K21.9 Gastro-esophageal reflux disease without esophagitis; F41.9 Anxiety disorder, unspecified; J44.9 Chronic obstructive pulmonary disease, unspecified; N30.90 Cystitis, unspecified without hematuria; I95.9 Hypotension, unspecified; I25.10 Atherosclerotic heart disease of native coronary artery without angina pectoris; E78.5 Hyperlipidemia, unspecified; I10 Essential (primary) hypertension; F32.9 Major depressive disorder, single episode, unspecified; Z90.49 Acquired absence of other specified parts of digestive tract; Z95.1 Presence of aortocoronary bypass graft; Z98.42 Cataract extraction status, left eye; Z98.41 Cataract extraction status, right eye; Z95.5 Presence of coronary angioplasty implant and graft; Z79.01 Long term (current) use of anticoagulants; Z79.82 Long term (current) use of aspirin; Z79.899 Other long term (current) drug therapy; Z85.118 Personal history of other malignant neoplasm of bronchus and lung; I25.2 Old myocardial infarction; Z87.891 Personal history of nicotine dependence
CPT/HCPCS: 10879

== ENCOUNTER → 2020-11-26 | Outpatient (CLI) | payer OTHER ==
[~2020-11-26] MED LIST changes: +CEFPODOXIME PR200 M1 PO; +NYSTATIN1000000 UN TOP; +PREDNISONE 10 M10 MG PO; +[UNRECOGNIZED DRUG - OTHER] PO
== END ==
LOC: RAD 16:08
PROVIDERS: ATTEND Internal Medicine
DX: J90 Pleural effusion, not elsewhere classified (principal); J98.4 Other disorders of lung; I51.7 Cardiomegaly

== ENCOUNTER → 2020-12-21 | Outpatient (CLI) | payer OTHER | LOC: SJCVC 13:27 | PROVIDERS: ATTEND Internal Medicine | DX: I25.10 Atherosclerotic heart disease of native coronary artery without angina pectoris (principal); R94.31 Abnormal electrocardiogram [ECG] [EKG]; I45.10 Unspecified right bundle-branch block; I25.5 Ischemic cardiomyopathy; E78.5 Hyperlipidemia, unspecified; U07.1 COVID-19; C34.92 Malignant neoplasm of unspecified part of left bronchus or lung; I11.0 Hypertensive heart disease with heart failure; I50.22 Chronic systolic (congestive) heart failure; I25.2 Old myocardial infarction; F17.201 Nicotine dependence, unspecified, in remission; Z95.1 Presence of aortocoronary bypass graft; Z90.49 Acquired absence of other specified parts of digestive tract; Z79.899 Other long term (current) drug therapy; Z82.49 Family history of ischemic heart disease and other diseases of the circulatory system ==

== ENCOUNTER → 2021-01-07 | Outpatient (CLI) | payer OTHER | LOC: RAD 15:42 | PROVIDERS: ATTEND Internal Medicine | DX: J90 Pleural effusion, not elsewhere classified (principal); I51.7 Cardiomegaly ==

== ENCOUNTER 2021-02-02 12:58 | Emergency (ER) | payer OTHER ==
[~2021-02-02] VITALS: Ht 160 cm; Wt 77.6 kg
[2021-02-02 14:44] LABS: ABSOLUTE NEUTROPHILS 4.6 thou/uL (1.4-8.2); BASOPHILS 0.5 % (0.0-2.0); EOSINOPHILS 1.1 % (0.0-3.0); HEMATOCRIT 37.8 % (37.0-47.0); HEMOGLOBIN 12.9 gm/dL (12.0-15.0); LYMPHOCYTES 28.7 % (24.0-44.0); MCH 30.8 pg (26.0-34.0); MCV 90.6 fL (80.0-100.0); MONOCYTES 10.2 % (1.0-8.0); PLATELET COUNT 222 thou/uL (150-400); POLYS 59.5 % (36.0-66.0); RBC 4.18 mil/uL (4.20-5.00); RDW 18.1 % (10.5-14.5); WBC 7.8 thou/uL (4.0-11.0)
[2021-02-02 14:52] LABS: CALCIUM 9.1 mg/dL (8.5-10.1); CREATININE 1.2 mg/dL (0.6-1.0); POTASSIUM 4.1 mmol/L (3.5-5.1)
[2021-02-02 14:58] LABS: ALBUMIN 3.2 g/dL (3.4-5.0); TOTAL BILIRUBIN 0.4 mg/dL (0.2-1.0); TOTAL PROTEIN 7.3 g/dL (6.4-8.2)
[2021-02-02 15:24] LABS: ANISOCYTOSIS 2+; HYPOCHROMASIA SLIGHT
[2021-02-02 16:12] LABS: URINE BILIRUBIN NEGATIVE (Negative); URINE BLOOD NEGATIVE (Negative); URINE CLARITY CLEAR; URINE COLOR YELLOW; URINE GLUCOSE-RANDOM* NEGATIVE (Negative); URINE KETONES NEGATIVE (Negative); URINE LEUKOCYTES-REFLEX TRACE (Negative); URINE NITRITE-REFLEX NEGATIVE (Negative); URINE PROTEIN (DIPSTICK) NEGATIVE (Negative); URINE UROBILINOGEN 0.2 E.U./dl (0.2-1.0)
[2021-02-02] MEDS ORDERED: MIRALAX119 GM PO (17:21)
[2021-02-02] MEDS ORDERED: NAPROSYN500 MG PO (17:32)
[2021-02-02 20:23] VITALS: BP 107/59
== END 2021-02-02 20:24 | disposition home or self-care (01) ==
LOC: ER 12:58
PROVIDERS: Physician Assistant
DX: K59.00 Constipation, unspecified (principal); J44.9 Chronic obstructive pulmonary disease, unspecified; I25.2 Old myocardial infarction; K21.9 Gastro-esophageal reflux disease without esophagitis; Z90.49 Acquired absence of other specified parts of digestive tract; Z95.1 Presence of aortocoronary bypass graft; Z79.899 Other long term (current) drug therapy; Z87.891 Personal history of nicotine dependence; Z79.82 Long term (current) use of aspirin

== ENCOUNTER 2021-04-25 16:28 | Emergency (ER) | payer OTHER ==
[~2021-04-25] VITALS: Ht 160 cm; Wt 75.3 kg
[~2021-04-25 16:28] MED LIST changes: +MIRALAX119 GM PO; +NAPROSYN500 MG PO
[2021-04-25 16:31] VITALS: BP 100/77
[2021-04-25] MEDS ORDERED: HYDROCODON-ACE1 EAC7 PO (17:48)
== END 2021-04-25 18:05 | disposition home or self-care (01) ==
LOC: ER 16:28
DX: S93.691A Other sprain of right foot, initial encounter (principal); S80.01XA Contusion of right knee, initial encounter; S80.02XA Contusion of left knee, initial encounter; J44.9 Chronic obstructive pulmonary disease, unspecified; I25.2 Old myocardial infarction; Z87.891 Personal history of nicotine dependence; Z79.899 Other long term (current) drug therapy; Z79.82 Long term (current) use of aspirin; Z95.1 Presence of aortocoronary bypass graft; W18.30XA Fall on same level, unspecified, initial encounter; Y93.89 Activity, other specified; Y92.89 Other specified places as the place of occurrence of the external cause; Y99.9 Unspecified external cause status

== ENCOUNTER → 2021-04-29 | Outpatient (CLI) | payer OTHER ==
[~2021-04-29] MED LIST changes: +HYDROCODON-ACE1 EAC7 PO
== END ==
LOC: RAD 12:06
PROVIDERS: ATTEND Internal Medicine
DX: J90 Pleural effusion, not elsewhere classified (principal); J98.4 Other disorders of lung

== ENCOUNTER → 2021-05-03 | Outpatient (CLI) | payer OTHER | LOC: CAT 09:02 → EDSTATUS 17:34 | PROVIDERS: ATTEND Internal Medicine | DX: J94.8 Other specified pleural conditions (principal); I25.10 Atherosclerotic heart disease of native coronary artery without angina pectoris; Z85.118 Personal history of other malignant neoplasm of bronchus and lung; Z90.2 Acquired absence of lung [part of] ==

== ENCOUNTER → 2021-05-14 | Outpatient (CLI) | payer OTHER | LOC: ULTRA 13:19 | PROVIDERS: ATTEND Internal Medicine | DX: R60.0 Localized edema (principal) ==

== ENCOUNTER → 2021-10-17 | Outpatient (CLI) | payer OTHER | LOC: CAT 10-14 10:08 | PROVIDERS: ATTEND Internal Medicine | DX: J90 Pleural effusion, not elsewhere classified (principal); Z85.118 Personal history of other malignant neoplasm of bronchus and lung; Z90.2 Acquired absence of lung [part of]; Z87.891 Personal history of nicotine dependence ==

== ENCOUNTER → 2021-12-26 | Outpatient (CLI) | payer OTHER | LOC: SJCVCIMAG 09:20 | PROVIDERS: ATTEND Internal Medicine | DX: R94.31 Abnormal electrocardiogram [ECG] [EKG] (principal); I45.10 Unspecified right bundle-branch block; R00.1 Bradycardia, unspecified; I44.0 Atrioventricular block, first degree; I34.0 Nonrheumatic mitral (valve) insufficiency; I25.10 Atherosclerotic heart disease of native coronary artery without angina pectoris; I25.5 Ischemic cardiomyopathy; E78.5 Hyperlipidemia, unspecified; Z95.1 Presence of aortocoronary bypass graft; U07.1 COVID-19; C34.92 Malignant neoplasm of unspecified part of left bronchus or lung; F17.201 Nicotine dependence, unspecified, in remission; I11.0 Hypertensive heart disease with heart failure; I50.22 Chronic systolic (congestive) heart failure; Z98.61 Coronary angioplasty status; M81.0 Age-related osteoporosis without current pathological fracture; Z79.82 Long term (current) use of aspirin; Z79.899 Other long term (current) drug therapy ==